=== PATIENT | female | born 2000 | race African-American/Black ===

== ENCOUNTER 2020-06-09 11:16 | Emergency (ER) | payer MEDICAID ==
[~2020-06-09] VITALS: Ht 152.4 cm; Wt 47.0 kg
[2020-06-09] MEDS ORDERED: KETOROLAC 30MG/ML VIAL IM ONE (11:30)
[2020-06-09 12:29] VITALS: BP 142/94
== END 2020-06-09 12:30 | disposition home or self-care (01) ==
LOC: ER 11:16
DX: M25.512 Pain in left shoulder (principal)
CPT/HCPCS: 81025; 96372; 99283; J1885